=== PATIENT | male | born 1970 | race American Indian/Alaskan Native ===

== ENCOUNTER 2018-04-21 14:14 | Emergency (ER) | payer SELFPAY ==
[2018-04-21] MEDS ORDERED: MOTRIN PO ONE (14:40)
[2018-04-21] MEDS ORDERED: PEPCID PO ONE (14:40)
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
[2018-04-21 16:59] VITALS: BP 132/74
== END 2018-04-21 16:56 | disposition home or self-care (01) ==
LOC: ED 14:14
DX: S29.012A Strain of muscle and tendon of back wall of thorax, initial encounter (principal); M54.2 Cervicalgia; F17.200 Nicotine dependence, unspecified, uncomplicated; V49.9XXA Car occupant (driver) (passenger) injured in unspecified traffic accident, initial encounter; Y93.89 Activity, other specified; Y99.8 Other external cause status; Y92.410 Unspecified street and highway as the place of occurrence of the external cause
CPT/HCPCS: 72040; 72070; 99283